=== PATIENT | male | born 1980 | race African-American/Black ===

== ENCOUNTER 2018-10-19 21:12 | Emergency (ER) | payer SELFPAY ==
[~2018-10-19] VITALS: Ht 177.8 cm; Wt 86.4 kg
[2018-10-20] MEDS ORDERED: LEVETIRACETAM 500MG TABLET PO ONE (00:30)
[2018-10-20 01:14] LABS: BASOPHILS % 0.4 % (0.0-2.0); EOSINOPHILS % 0.1 % (0.0-5.0); HEMATOCRIT. 47.4 % (42.0-52.0); HEMOGLOBIN. 15.9 g/dL (14.0-18.0); LYMPHOCYTES % 8.7 % (20.0-50.0); MEAN CORPUSCULAR HEMOGLOBIN 27.4 pg (28.0-32.0); MEAN CORPUSCULAR VOLUME 81.8 fL (80.0-94.0); MEAN PLATELET VOLUME 8.6 fl (7.4-10.4); MONOCYTES % 8.4 % (2.0-8.0); NEUTROPHILS % 82.4 % (40.0-76.0); PLATELET 232 x1000/uL (130-400); RED BLOOD CELL COUNT 5.79 mill/uL (4.7-6.1); RED CELL DISTRIBUTION WIDTH 13.5 % (11.6-14.6)
[2018-10-20 01:16] LABS: CHLORIDE 106 mEq/L (98-107)
[2018-10-20 04:23] VITALS: BP 115/63
== END 2018-10-20 04:53 | disposition home or self-care (01) ==
LOC: ER 21:12
DX: R56.9 Unspecified convulsions (principal); F17.200 Nicotine dependence, unspecified, uncomplicated; F12.10 Cannabis abuse, uncomplicated; Z91.018 Allergy to other foods
CPT/HCPCS: 36415; 99283